=== PATIENT | female | born 1960 | race African-American/Black ===

== ENCOUNTER 2019-04-09 18:26 | Emergency (ER) | payer BC, OTHER ==
[~2019-04-09] VITALS: Ht 162.6 cm; Wt 86.2 kg
[2019-04-09] MEDS ORDERED: LIDOCAINE 1% PF 2 ML VIAL. INJ ONE (19:45)
[2019-04-09] MEDS ORDERED: NEOMY/BACITR/POLYMYXIN OINT PACKET. TP ONE (19:45)
[2019-04-09] MEDS ORDERED: DIPHTH,PERTUSS(ACELL),TET TOX 0.5 ML DISP.SYRIN. VAX IM ONE (19:45)
--- NOTE | 2019-04-09 20:33 | PHYS DOC ---
Past Medical History Past Medical History: Depression, Hypertension, Hypothyroid (CAROLINA THOMPSON APRN) Past Surgical History: Hysterectomy Additional Past Surgical Histo: Partial Hyst. (CAROLINA THOMPSON APRN) Alcohol Use: None Drug Use: None (CAROLINA THOMPSON APRN) Adult General Chief Complaint Chief Complaint: LACERATION/AVULSION HPI HPI Patient is a 58 year old AA female who presents to the emergency department, accompanied by her , with complaints of a laceration to the volar surface of her right hand. Patient states she was washing dishes when a dish broke and cut her. She reports that her last tetanus was greater than 5 years ago. She currently denies any pain. Patient states she is right-handed. She denies any numbness, tingling, or weakness of her hand. She denies any decreased range of motion or loss of strength. All other ROS is neg unless otherwise noted in HPI. (CAROLINA THOMPSON APRN) Review of Systems Review of Systems See Above (CAROLINA THOMPSON APRN) Current Medications Current Medications Current Medications Medications (Trade) Dose Ordered Sig/Stephan Start Time Stop Time Status Last Admin Dose Admin Diphtheria/ Tetanus/Acell Pertussis (Boostrix) 0.5 ml ONCE ONCE 04/09/19 19:45 04/09/19 19:46 DC 04/09/19 20:44 0.5 ML Lidocaine HCl (Xylocaine-Mpf 1% 2ml Vial) 4 ml 1X ONCE 04/09/19 19:45 04/09/19 19:46 DC 04/09/19 19:53 4 ML Neomycin/ Polymyxin/ Bacitracin (Triple Antibiotic Ointment) 1 pkt 1X ONCE 04/09/19 19:45 04/09/19 19:46 DC 04/09/19 19:54 1 PKT (NOA MEDINA MD) Allergies Allergies Allergies Coded Allergies Type Severity Reaction Last Updated Verified No Known Drug Allergies 04/09/19 No (NOA MEDINA MD) Physical Exam Physical Exam See Above Constitutional: Well developed, well nourished, no acute distress, non-toxic appearance. [] HENT: Normocephalic, atraumatic, bilateral external ears normal, nose normal. [] Eyes: PERRLA, EOMI, conjunctiva normal, no discharge. [] Neck: Normal range of motion, no stridor. [] Cardiovascular:Heart rate regular rhythm Lungs & Thorax: Respirations even and unlabored, no retractions, no respiratory distress Skin: Warm, dry, no erythema, no rash; 1.5 cm laceration noted to the medial aspect of the volar surface of the right hand proximal to the base of the fifth digit, no active bleeding. [] Back: No tenderness, no CVA tenderness. [] Extremities: No tenderness, no cyanosis, no clubbing, ROM intact, no edema. [] Neurologic: Alert and oriented X 3, normal sensory function, no focal deficits noted. [] Psychologic: Affect normal, judgement normal, mood normal. [] (CAROLINA THOMPSON APRN) Current Patient Data Vital Signs Vital Signs Date Time Temp Pulse Resp B/P (MAP) Pulse Ox O2 Delivery O2 Flow Rate FiO2 04/09/19 20:35 63 179/75 (109) 100 Room Air 04/09/19 19:05 98.1 17 98.1 (NOA MEDINA MD) EKG EKG [] (CAROLINA THOMPSON APRN) Radiology/Procedures Radiology/Procedures Laceration Repair by me: Anesthesia: 1% lidocaine locally Location: R hand Tendon/Joint/Nerves: No injury Foreign body: None detected after copious irrigation and exploration Technique: 3 Simple Interrupted Sutures with 4-0 Ethilon Complexity: No subcutaneous sutures/mucosal repair/edge excision Post Closure Length: 2 cm Patient's bleeding was easily controlled in the department and there is no indication of anemia. No evidence of compartment syndrome, neurologic injury, vascular injury, open joint, tendon laceration, or foreign body. Patient is appropriate for outpatient follow up. Scar minimization instructions given.[] (CAROLINA THOMPSON APRN) Course & Med Decision Making Course & Med Decision Making Pertinent Labs and Imaging studies reviewed. (See chart for details) [] (CAROLINA THOMPSON APRN) Course & Med Decision Making Staff Physician Addendum: I was working in the ER during the course of this patient's visit. I was available for consultation as needed, but I was not directly involved in the care of this patient. (NOA MEDINA MD) Dragon Disclaimer Dragon Disclaimer This electronic medical record was generated, in whole or in part, using a voice recognition dictation system. (CAROLINA THOMPSON APRN) Departure Departure Impression: Primary Impression: Laceration of right hand without complication, excluding fingers Disposition: 01 HOME, SELF-CARE Condition: STABLE Referrals: NGA FIGUEREDO MD (PCP) Patient Instructions: Laceration Care, Adult, [id number] Additional Instructions: Keep the area clean and dry. You may take Tylenol or ibuprofen as needed for pain. Keep the dressing that was placed today on for 24 hours then change the dressing twice a day and apply antibiotic ointment to the area. Follow-up with your primary care doctor, or return to the emergency room in 10-14 days to have the sutures removed, sooner if you develop signs of infection including: redness, warmth, drainage, or a fever. Problem Qualifiers Primary Impression: Laceration of right hand without complication, excluding fingers Encounter type: initial encounter Qualified Codes: S61.411A - Laceration without foreign body of right hand, initial encounter CAROLINA THOMPSON APRN Apr 09, 2019 20:33 NOA MEDINA MD Apr 10, 2019 04:42
[2019-04-09 20:35] VITALS: BP 179/75
== END 2019-04-09 20:55 | disposition home or self-care (01) ==
LOC: ER 18:26
DX: S61.411A Laceration without foreign body of right hand, initial encounter (principal); I10 Essential (primary) hypertension; Z90.710 Acquired absence of both cervix and uterus; E03.9 Hypothyroidism, unspecified; F32.9 Major depressive disorder, single episode, unspecified; W26.8XXA Contact with other sharp object(s), not elsewhere classified, initial encounter; Y93.G1 Activity, food preparation and clean up; Y92.099 Unspecified place in other non-institutional residence as the place of occurrence of the external cause; Y99.8 Other external cause status
CPT/HCPCS: 12001; 90471; 90715; 99283

== ENCOUNTER 2019-04-21 17:55 | Emergency (ER) | payer BC ==
[~2019-04-21] VITALS: Ht 162.6 cm; Wt 86.2 kg
[2019-04-21 18:03] VITALS: BP 165/87
--- NOTE | 2019-04-21 19:03 | PHYS DOC ---
Past Medical History Past Medical History: Depression, Hypertension, Hypothyroid (CAROLINA THOMPSON APRN) Past Surgical History: Hysterectomy Additional Past Surgical Histo: Partial Hyst. (CAROLINA THOMPSON APRN) Alcohol Use: None Drug Use: None (CAROLINA THOMPSON APRN) Attending Signature I have participated in the care of this patient and I have reviewed and agree with all pertinent clinical information above including history, exam, and recommendations. (HAYDEE WARNER MD) Adult General Chief Complaint Chief Complaint: SUTURE/STAPLE REMOVAL [facility] HPI Patient is a 58 year old AA male, accompanied by her , who presents to the emergency department for suture removal. Patient states she had 3 sutures placed in her right hand on April 09, 2019. Denies any fever, redness, drainage, or warmth at the site. Patient currently denies any pain other complaints. All other ROS is neg unless otherwise noted in HPI. (CAROLINA THOMPSON APRN) Review of Systems Review of Systems See Above (CAROLINA THOMPSON APRN) Allergies Allergies Allergies Coded Allergies Type Severity Reaction Last Updated Verified No Known Drug Allergies 04/09/19 No (HAYDEE WARNER MD) Physical Exam Physical Exam See Above Constitutional: Well developed, well nourished, no acute distress, non-toxic appearance. [] HENT: Normocephalic, atraumatic, bilateral external ears normal, nose normal. [] Eyes: PERRLA, EOMI, conjunctiva normal, no discharge. [] Neck: Normal range of motion, no stridor. [] Lungs & Thorax: Respirations even and unlabored, no retractions, no respiratory distress Skin: R hadn wound no drainage month no warmth, no erythema, no rash, wound edges are well approximated. [] Extremities: No tenderness, no cyanosis, no clubbing, ROM intact, no edema. [] Neurologic: Alert and oriented X 3, no focal deficits noted. [] Psychologic: Affect normal, judgement normal, mood normal. [] (CAROLINA THOMPSON APRN) Current Patient Data Vital Signs Vital Signs Date Time Temp Pulse Resp B/P (MAP) Pulse Ox O2 Delivery O2 Flow Rate FiO2 04/21/19 18:03 98.0 71 16 165/87 (113) 98 Room Air 98.0 (HAYDEE WARNER MD) EKG EKG [] (CAROLINA THOMPSON APRN) Radiology/Procedures Radiology/Procedures 3 sutures were removed from the right dorsal hand, no wound dehiscence, no bleeding, no drainage, patient tolerated the procedure well.[] (CAROLINA THOMPSON APRN) Course & Med Decision Making Course & Med Decision Making Pertinent Labs and Imaging studies reviewed. (See chart for details) [] (CAROLINA THOMPSON APRN) Dragon Disclaimer Dragon Disclaimer This electronic medical record was generated, in whole or in part, using a voice recognition dictation system. (CAROLINA THOMPSON APRN) Departure Departure Impression: Primary Impression: Encounter for removal of sutures Additional Impression: Laceration of right hand without complication, excluding fingers Disposition: 01 HOME, SELF-CARE Condition: STABLE Referrals: NGA FIGUEREDO MD (PCP) Patient Instructions: Suture Removal-Brief Additional Instructions: Recommend use of mederma cream or vitamin E to help reduce scarring. Also recommend wearing sunblock if area will be exposed to sun. Follow-up with your primary care doctor as needed. Return to the ER symptoms worsen. Problem Qualifiers Additional Impression: Laceration of right hand without complication, excluding fingers Encounter type: subsequent encounter Qualified Codes: S61.411D - Laceration without foreign body of right hand, subsequent encounter CAROLINA THOMPSON APRN Apr 21, 2019 19:03 HAYDEE WARNER MD Apr 25, 2019 02:03
== END 2019-04-21 18:49 | disposition home or self-care (01) ==
LOC: ER 17:55
DX: S61.411D Laceration without foreign body of right hand, subsequent encounter (principal); I10 Essential (primary) hypertension; E03.9 Hypothyroidism, unspecified; X58.XXXD Exposure to other specified factors, subsequent encounter
CPT/HCPCS: 99281